=== PATIENT | female | born 1935 | race Caucasian/White ===

== ENCOUNTER 2018-01-18 13:57 | Inpatient (IN) ==
[2018-01-18 16:49] LABS: Basophils # 0.1 10*3/uL (0.0-0.2); Basophils % 0.7 % (0.0-0.8); Eosinophils # 0.3 10*3/uL (0.0-0.87); Eosinophils % 3.9 % (0.00-10.9); Hematocrit 33.5 VOL% (35.7-47.0); Hemoglobin 10.7 GM/DL (12.0-16.0); Immature Granulocytes % 0.3 %; Immature Granulocytes Absolute 0.02 #; Lymphocytes # 2.8 10*3/uL (1.4-4.0); Lymphocytes % 39.6 % (21.3-54.2); Mean Corpuscular HGB Conc 31.9 GM/DL (32-36); Mean Corpuscular Hemoglobin 31 PG (27-34); Mean Corpuscular Volume 95.4 FL (87-102); Mean Platelet Volume 10.4 FL (9.6-12.0); Monocytes # 0.6 10*3/uL (0.11-0.8); Monocytes % 8.6 % (1.7-12.7); Neutrophils # 3.3 10*3/uL (1.4-7.4); Neutrophils % 46.9 % (38.7-73.9); Platelet Count 301 T/CUMM (130-400); Red Blood Count 3.51 MC/CUMM (3.8-5.5); Red Cell Distribution Width 13.7 % (9.3-17.3)
[2018-01-18 17:29] LABS: Calcium 9.5 MG/DL (8.5-10.1); Thyroid Stimulating Hormone 0.29 uIU/ml (0.358-3.74)
[2018-01-18 17:33] LABS: Potassium 6.1 MMOL/L (3.5-5.1)
[2018-01-18] MEDS ORDERED: ONDANSETRON 4 MG/2 ML VIAL IV PRN (17:45)
[2018-01-18] MEDS ORDERED: SODIUM POLYSTYRENE SULFATE 15 GM/60 ML BOTTLE PO ONE (17:49)
[2018-01-18] MEDS ORDERED: GLUCAGON 1 MG VIAL IM PRN (17:50)
[2018-01-18] MEDS ORDERED: DEXTROSE 50% 25 GM/50 ML VIAL IV PRN (17:50)
[2018-01-18] MEDS: SODIUM CHLORIDE 0.9% 1,000 ML IV SCH (18:28)
[2018-01-18] MEDS: INSULIN LISPRO 100 UNIT/ML SUBCUT SCH (23:11)
[2018-01-19 05:27] LABS: Basophils % 0.6 % (0.0-0.8); Eosinophils # 0.4 10*3/uL (0.0-0.87); Eosinophils % 5.7 % (0.00-10.9); Hematocrit 29.5 VOL% (35.7-47.0); Hemoglobin 9.9 GM/DL (12.0-16.0); Immature Granulocytes % 0.3 %; Immature Granulocytes Absolute 0.02 #; Lymphocytes # 2.6 10*3/uL (1.4-4.0); Lymphocytes % 39.3 % (21.3-54.2); Mean Corpuscular HGB Conc 33.6 GM/DL (32-36); Mean Corpuscular Hemoglobin 31 PG (27-34); Mean Corpuscular Volume 92.5 FL (87-102); Mean Platelet Volume 10.4 FL (9.6-12.0); Monocytes # 0.7 10*3/uL (0.11-0.8); Neutrophils # 2.9 10*3/uL (1.4-7.4); Neutrophils % 44.1 % (38.7-73.9); Platelet Count 265 T/CUMM (130-400); Red Blood Count 3.19 MC/CUMM (3.8-5.5); Red Cell Distribution Width 13.7 % (9.3-17.3); White Blood Count 6.5 T/CUMM (4-12)
[2018-01-19 06:00] LABS: Calcium 8.7 MG/DL (8.5-10.1); Osmolality,Calculated 302.3 MOS/KG (273-304); Potassium 5.8 MMOL/L (3.5-5.1)
[2018-01-19] MEDS: SODIUM CHLORIDE 0.9% 1,000 ML IV SCH (09:57)
[2018-01-19] MEDS: GABAPENTIN 300 MG CAPSULE PO SCH ×2 (10:06→21:13)
[2018-01-19] MEDS: DICYCLOMINE 10 MG CAPSULE PO SCH (10:06)
[2018-01-19] MEDS: PANTOPRAZOLE 40 MG TABLET PO SCH (10:06)
[2018-01-19] MEDS: ALLOPURINOL 100 MG TABLET PO SCH (10:07)
[2018-01-19] MEDS: INSULIN GLARGINE 100 UNIT/ML SUBCUT SCH (10:07)
[2018-01-19] MEDS: hydrALAZINE 25 MG TABLET PO SCH ×3 (10:07→21:13)
[2018-01-19] MEDS: SIMVASTATIN 20 MG TABLET PO SCH (10:07)
[2018-01-19] MEDS: amLODIPine 2.5 MG TABLET PO SCH (10:07)
[2018-01-19] MEDS: INSULIN LISPRO 100 UNIT/ML SUBCUT SCH ×4 (10:08→23:04)
[2018-01-19] MEDS: SODIUM BICARB INJ 100 MEQ in DEXTROSE 5% 1,000 ML IV SCH ×2 (11:02→21:13)
[2018-01-19] MEDS ORDERED: SODIUM POLYSTYRENE SULFATE 15 GM/60 ML BOTTLE PO ONE (14:05)
[2018-01-19 15:36] LABS: Apearance,Urine CLEAR (Clear); Bacteria,Urine Occasional /HPF (Few); Bilirubin,Urine Negative (Negative); Blood, Urine Negative (Negative); Glucose,Urine (UA) Negative (Negative); Ketones,Urine Negative (Negative); Nitrite,Urine Negative (Negative); Protein,Urine Negative; RBC,Urine 1 /HPF (0-4); Squamous Epithelial Cell,Urine Occasional /HPF (0-10); Urine Color Yellow (Yellow); Urine Specific Gravity 1.009 (1.001-1.035); Urine Urobilinogen < 2.0 EU/DL (0.2-1.0); WBC,Urine 14 /HPF (0-6)
[2018-01-19] MEDS ORDERED: POLYETHYLENE GLYCOL 3350/ELECTROLYTES 4,000 ML BOTTLE PO ONE (18:00)
[2018-01-19] MEDS ORDERED: MAGNESIUM CITRATE 300 ML BOTTLE PO ONE (21:00)
[2018-01-20 06:32] LABS: Basophils # 0.1 10*3/uL (0.0-0.2); Basophils % 0.9 % (0.0-0.8); Eosinophils # 0.3 10*3/uL (0.0-0.87); Eosinophils % 4.8 % (0.00-10.9); Hematocrit 30.1 VOL% (35.7-47.0); Hemoglobin 9.9 GM/DL (12.0-16.0); Immature Granulocytes % 0.3 %; Immature Granulocytes Absolute 0.02 #; Lymphocytes # 3.1 10*3/uL (1.4-4.0); Lymphocytes % 46.2 % (21.3-54.2); Mean Corpuscular HGB Conc 32.9 GM/DL (32-36); Mean Corpuscular Hemoglobin 31 PG (27-34); Mean Corpuscular Volume 92.9 FL (87-102); Mean Platelet Volume 10.2 FL (9.6-12.0); Monocytes # 0.6 10*3/uL (0.11-0.8); Monocytes % 9.5 % (1.7-12.7); Neutrophils # 2.5 10*3/uL (1.4-7.4); Neutrophils % 38.3 % (38.7-73.9); Platelet Count 273 T/CUMM (130-400); Red Blood Count 3.24 MC/CUMM (3.8-5.5); White Blood Count 6.6 T/CUMM (4-12)
[2018-01-20 07:00] LABS: Eosinophils 5 % (0-10); Lymphocytes 39 % (20-55); Segmented Neutrophils 47 % (50-85); Total Cells Counted 100
[2018-01-20 07:01] LABS: Hypochromasia 1+; Microcytosis 1+; Ovalocytes Slight
[2018-01-20 07:02] LABS: Platelet Estimate Normal
[2018-01-20 07:05] LABS: Calcium 8.4 MG/DL (8.5-10.1); Osmolality,Calculated 291.5 MOS/KG (273-304); Potassium 4.1 MMOL/L (3.5-5.1)
[2018-01-20 07:10] LABS: Risk Ratio 2.71; T4 (Thyroxine) 6.5 UG/DL (4.7-13.3)
[2018-01-20] MEDS ORDERED: PROPOFOL 200 MG/20 ML VIAL IV ONE (08:50)
[2018-01-20] MEDS ORDERED: LIDOCAINE 1% 5 ML VIAL ONE (08:50)
[2018-01-20] MEDS: SODIUM BICARB INJ 100 MEQ in DEXTROSE 5% 1,000 ML IV SCH ×3 (09:50→21:12)
[2018-01-20] MEDS: INSULIN LISPRO 100 UNIT/ML SUBCUT SCH ×4 (09:50→21:14)
[2018-01-20] MEDS: INSULIN GLARGINE 100 UNIT/ML SUBCUT SCH (10:56)
[2018-01-20] MEDS: DIPHENOXYLATE/ATROPINE 2.5-0.025 MG TABLET PO SCH ×2 (10:57→21:12)
[2018-01-20] MEDS: DICYCLOMINE 10 MG CAPSULE PO SCH (10:57)
[2018-01-20] MEDS: SIMVASTATIN 20 MG TABLET PO SCH (10:57)
[2018-01-20] MEDS: PANTOPRAZOLE 40 MG TABLET PO SCH (10:57)
[2018-01-20] MEDS: hydrALAZINE 25 MG TABLET PO SCH ×3 (10:57→21:12)
[2018-01-20] MEDS: amLODIPine 2.5 MG TABLET PO SCH (10:57)
[2018-01-20] MEDS: ALLOPURINOL 100 MG TABLET PO SCH (10:57)
[2018-01-20] MEDS: LEVOTHYROXINE 100 MCG TABLET PO SCH (10:57)
[2018-01-20] MEDS: GABAPENTIN 300 MG CAPSULE PO SCH ×2 (10:57→21:12)
[2018-01-21 06:18] LABS: Basophils % 0.5 % (0.0-0.8); Eosinophils # 0.4 10*3/uL (0.0-0.87); Eosinophils % 5.2 % (0.00-10.9); Hematocrit 27.2 VOL% (35.7-47.0); Immature Granulocytes % 0.3 %; Immature Granulocytes Absolute 0.02 #; Lymphocytes # 2.6 10*3/uL (1.4-4.0); Lymphocytes % 35.3 % (21.3-54.2); Mean Corpuscular HGB Conc 33.1 GM/DL (32-36); Mean Corpuscular Hemoglobin 31 PG (27-34); Mean Corpuscular Volume 93.8 FL (87-102); Mean Platelet Volume 10.2 FL (9.6-12.0); Monocytes # 0.8 10*3/uL (0.11-0.8); Monocytes % 10.5 % (1.7-12.7); Neutrophils # 3.5 10*3/uL (1.4-7.4); Neutrophils % 48.2 % (38.7-73.9); Platelet Count 228 T/CUMM (130-400); Red Cell Distribution Width 13.6 % (9.3-17.3); White Blood Count 7.3 T/CUMM (4-12)
[2018-01-21 06:37] LABS: Calcium 8.1 MG/DL (8.5-10.1); Potassium 4.4 MMOL/L (3.5-5.1)
[2018-01-21] MEDS: LEVOTHYROXINE 100 MCG TABLET PO SCH (06:40)
[2018-01-21] MEDS: SODIUM BICARB INJ 100 MEQ in DEXTROSE 5% 1,000 ML IV SCH (06:41)
[2018-01-21] MEDS: DIPHENOXYLATE/ATROPINE 2.5-0.025 MG TABLET PO SCH (08:29)
[2018-01-21] MEDS: SIMVASTATIN 20 MG TABLET PO SCH (08:29)
[2018-01-21] MEDS: GABAPENTIN 300 MG CAPSULE PO SCH (08:29)
[2018-01-21] MEDS: PANTOPRAZOLE 40 MG TABLET PO SCH (08:29)
[2018-01-21] MEDS: hydrALAZINE 25 MG TABLET PO SCH ×2 (08:29→16:43)
[2018-01-21] MEDS: DICYCLOMINE 10 MG CAPSULE PO SCH (08:29)
[2018-01-21] MEDS: ALLOPURINOL 100 MG TABLET PO SCH (08:29)
[2018-01-21] MEDS: INSULIN LISPRO 100 UNIT/ML SUBCUT SCH ×3 (08:30→16:43)
[2018-01-21] MEDS: INSULIN GLARGINE 100 UNIT/ML SUBCUT SCH (08:31)
[2018-01-21] MEDS ORDERED: amLODIPine 5 MG TABLET PO SCH (09:00)
[2018-01-21 12:22] VITALS: BP 130/61
[2018-01-22 15:31] LABS: Collection duration of stool Random h; Total Weight of Stool 18 g
[2018-01-24 23:41] LABS: IgA Serum (MAYO) 145 mg/dL (61 - 356)
== END 2018-01-21 16:56 | disposition home or self-care (01) | DRG 392 ==
LOC: N.5E → OBSVTOIN 14:56 → SUATTDRO 14:56
PROVIDERS: ADMIT Internal Medicine
PROC: COLONBX (2018-01-20 07:05)

== ENCOUNTER 2021-07-22 17:18 | Observation (INO) ==
[2021-07-22 18:11] LABS: Basophils # 0.1 10*3/uL (0.0-0.2); Basophils % 0.6 % (0.0-0.8); Eosinophils # 0.3 10*3/uL (0.0-0.87); Eosinophils % 4.4 % (0.00-10.9); Hematocrit 27.5 VOL% (35.7-47.0); Hemoglobin 8.7 GM/DL (12.0-16.0); Immature Granulocytes % 0.3 %; Immature Granulocytes Absolute 0.02 #; Lymphocytes # 3.2 10*3/uL (1.4-4.0); Lymphocytes % 41.1 % (21.3-54.2); Mean Corpuscular HGB Conc 31.6 GM/DL (32-36); Mean Corpuscular Volume 93.2 FL (87-102); Mean Platelet Volume 10.6 FL (9.6-12.0); Monocytes % 9.6 % (1.7-12.7); Platelet Count 266 T/CUMM (130-400); Red Blood Count 2.95 MC/CUMM (3.8-5.5); Red Cell Distribution Width 14.4 % (9.3-17.3); White Blood Count 7.7 T/CUMM (4-12)
[2021-07-22] MEDS ORDERED: SODIUM CHLORIDE 0.9% 1,000 ML IV STA (18:11)
[2021-07-22 18:34] LABS: Alanine Aminotransferase 19 U/L (13-56); Albumin 4.2 G/DL (3.4-5.0); Alkaline Phosphatase 67 U/L (45-117); Aspartate Amino Transferase 9 U/L (0-37); Bilirubin,Total < 0.39 MG/DL (0.20-1.00); Blood Urea Nitrogen 115 MG/DL (7-18); Calcium 9.3 MG/DL (8.5-10.1); Carbon Dioxide 13 MMOL/L (21-32); Estimated Glom Filtration Rate 11 ML/MIN; Glucose 212 MG/DL (74-106); Osmolality,Calculated 312.1 MOS/KG (273-304); Sodium 135 MMOL/L (136-145); Thyroid Stimulating Hormone 0.015 uIU/ml (0.358-3.74); Total Protein 7.7 G/DL (6.4-8.2)
[2021-07-22] MEDS ORDERED: ACETAMINOPHEN 325 MG TABLET PO PRN (20:47)
[2021-07-22] MEDS ORDERED: GLUCAGON 1 MG VIAL IM PRN ×2 (20:47→21:16)
[2021-07-22] MEDS ORDERED: DEXTROSE 50% 25 GM/50 ML VIAL IV PRN ×2 (20:47→21:16)
[2021-07-22] MEDS ORDERED: ENOXAPARIN 100 MG/ML SYRINGE SUBCUT STA (20:49)
[2021-07-22] MEDS ORDERED: ENOXAPARIN 100 MG/ML SYRINGE SUBCUT SCH (21:00)
[2021-07-22] MEDS: hydrALAZINE 25 MG TABLET PO SCH (21:45)
[2021-07-22] MEDS: LACTATED RINGERS 1,000 ML IV SCH (21:48)
[2021-07-22] MEDS: METOPROLOL TARTRATE 25 MG TABLET PO SCH (21:49)
[2021-07-22 22:39] LABS: Barbiturates Screen,Urine Negative (Negative); Benzodiazepines Screen,Urine Negative (Negative); Cannabinoid Screen,Urine Negative (Negative); Opiate Screen,Urine Negative (Negative); Phencyclidine Screen,Urine Negative (Negative)
[2021-07-22] MEDS: ZALEPLON 5 MG CAPSULE PO SCH (22:43)
[2021-07-23 05:42] LABS: Basophils % 0.5 % (0.0-0.8); Eosinophils # 0.6 10*3/uL (0.0-0.87); Eosinophils % 6.8 % (0.00-10.9); Hematocrit 28.2 VOL% (35.7-47.0); Hemoglobin 8.8 GM/DL (12.0-16.0); Immature Granulocytes % 0.2 %; Immature Granulocytes Absolute 0.02 #; Lymphocytes # 3.8 10*3/uL (1.4-4.0); Mean Corpuscular HGB Conc 31.2 GM/DL (32-36); Mean Corpuscular Volume 95.6 FL (87-102); Mean Platelet Volume 10.5 FL (9.6-12.0); Monocytes % 8.9 % (1.7-12.7); Neutrophils % 40.6 % (38.7-73.9); Platelet Count 256 T/CUMM (130-400); Red Blood Count 2.95 MC/CUMM (3.8-5.5); Red Cell Distribution Width 14.5 % (9.3-17.3); White Blood Count 8.7 T/CUMM (4-12)
[2021-07-23 06:03] LABS: Osmolality,Calculated 313.3 MOS/KG (273-304); Potassium 5.4 MMOL/L (3.5-5.1); Risk Ratio 2.67; VLDL Cholesterol 20.8 MG/DL
[2021-07-23] MEDS ORDERED: SODIUM CHLORIDE 0.9% 1,000 ML IV SCH (08:00)
[2021-07-23] MEDS ORDERED: LEVOTHYROXINE 137 MCG TABLET PO SCH (09:00)
[2021-07-23] MEDS ORDERED: sitaGLIPtin 25 MG TABLET PO SCH (09:00)
[2021-07-23] MEDS: INSULIN REGULAR 100 UNIT/ML SUBCUT SCH ×4 (09:46→21:02)
[2021-07-23] MEDS: GABAPENTIN 300 MG CAPSULE PO SCH (09:49)
[2021-07-23] MEDS: METOPROLOL TARTRATE 25 MG TABLET PO SCH ×2 (09:49→20:54)
[2021-07-23] MEDS: hydrALAZINE 25 MG TABLET PO SCH ×3 (09:49→20:57)
[2021-07-23] MEDS: amLODIPine 2.5 MG TABLET PO SCH (09:49)
[2021-07-23] MEDS: allopurinoL 100 MG TABLET PO SCH (09:49)
[2021-07-23] MEDS ORDERED: SODIUM POLYSTYRENE SULFATE 15 GM/60 ML BOTTLE PO ONE (09:52)
[2021-07-23] MEDS ORDERED: INSULIN REGULAR 100 UNIT/ML IV ONE (11:04)
[2021-07-23] MEDS ORDERED: DEXTROSE 50% 25 GM/50 ML VIAL IV ONE (11:04)
[2021-07-23] MEDS ORDERED: CALCIUM GLUCONATE 1,000 MG in SODIUM CHLORIDE 0.9% 100 ML IV ONE (11:04)
[2021-07-23] MEDS ORDERED: SODIUM BICARBONATE 50 MEQ/50 ML VIAL IV ONE (11:12)
[2021-07-23 11:33] LABS: Free T4 (Free Thyroxine) 1.63 NG/DL (0.76-1.46)
[2021-07-23 11:49] LABS: % Iron Saturation 28.1 % (18-50); Ferritin 244.4 ng/mL (8-252)
[2021-07-23 12:03] LABS: Folate 7.55 NG/ML (5.38-24.0)
[2021-07-23] MEDS: SODIUM BICARB INJ 100 MEQ in SODIUM CHLORIDE 0.9% 1,000 ML IV SCH (12:58)
[2021-07-23] MEDS: LACTATED RINGERS 1,000 ML IV SCH (13:27)
[2021-07-23 17:27] LABS: Bilirubin,Urine Negative (Negative); Blood, Urine Negative (Negative); Glucose,Urine (UA) 50 mg/dL (Negative); Hyaline Casts,Urine 3 /LPF (0-3); Ketones,Urine Negative (Negative); Nitrite,Urine Negative (Negative); Protein,Urine Negative; RBC,Urine 3 /HPF (0-4); Squamous Epithelial Cell,Urine Occasional /HPF (0-10); Urine Appearance CLEAR (Clear); Urine Color Straw (Yellow); Urine Urobilinogen < 2.0 EU/DL (0.2-1.0)
[2021-07-23] MEDS: ZALEPLON 5 MG CAPSULE PO SCH (20:54)
[2021-07-23] MEDS ORDERED: ENOXAPARIN 30 MG/0.3 ML SYRINGE SUBCUT SCH (21:00)
[2021-07-23] MEDS ORDERED: SIMVASTATIN 20 MG TABLET PO SCH (21:00)
[2021-07-24] MEDS: SODIUM BICARB INJ 100 MEQ in SODIUM CHLORIDE 0.9% 1,000 ML IV SCH (05:08)
[2021-07-24 05:45] LABS: Basophils # 0.1 10*3/uL (0.0-0.2); Basophils % 0.9 % (0.0-0.8); Eosinophils # 0.2 10*3/uL (0.0-0.87); Eosinophils % 3.7 % (0.00-10.9); Hematocrit 22.7 VOL% (35.7-47.0); Hemoglobin 7.3 GM/DL (12.0-16.0); Immature Granulocytes % 0.2 %; Immature Granulocytes Absolute 0.01 #; Lymphocytes # 1.6 10*3/uL (1.4-4.0); Lymphocytes % 27.6 % (21.3-54.2); Mean Corpuscular HGB Conc 32.2 GM/DL (32-36); Mean Corpuscular Volume 91.9 FL (87-102); Mean Platelet Volume 10.5 FL (9.6-12.0); Monocytes % 8.6 % (1.7-12.7); Platelet Count 203 T/CUMM (130-400); Red Blood Count 2.47 MC/CUMM (3.8-5.5); Red Cell Distribution Width 14.5 % (9.3-17.3); White Blood Count 5.6 T/CUMM (4-12)
[2021-07-24 06:06] LABS: Calcium 8.5 MG/DL (8.5-10.1); Osmolality,Calculated 309.6 MOS/KG (273-304); Potassium 4.4 MMOL/L (3.5-5.1)
[2021-07-24 07:58] LABS: % Iron Saturation 37.4 % (18-50); Ferritin 194.3 ng/mL (8-252)
[2021-07-24] MEDS ORDERED: PANTOPRAZOLE 40 MG TABLET PO SCH (09:00)
[2021-07-24] MEDS: GABAPENTIN 300 MG CAPSULE PO SCH (09:05)
[2021-07-24] MEDS: amLODIPine 2.5 MG TABLET PO SCH (09:05)
[2021-07-24] MEDS: METOPROLOL TARTRATE 25 MG TABLET PO SCH (09:06)
[2021-07-24] MEDS: allopurinoL 100 MG TABLET PO SCH (09:06)
[2021-07-24] MEDS: hydrALAZINE 25 MG TABLET PO SCH ×2 (09:06→15:16)
[2021-07-24] MEDS: INSULIN REGULAR 100 UNIT/ML SUBCUT SCH ×2 (09:16→14:51)
[2021-07-24 13:56] VITALS: BP 133/47
== END 2021-07-24 16:05 | disposition home or self-care (01) ==
LOC: N.EDINP 17:18 → N.ED 17:18 → SUATTDRO 20:47 → N.2W 22:07
PROVIDERS: ADMIT Internal Medicine; ATTEND Internal Medicine